=== PATIENT | male | born 1995 | race Caucasian/White ===

== ENCOUNTER 2019-07-18 12:19 | Emergency (ER) | payer SELFPAY ==
[~2019-07-18] VITALS: Ht 182.9 cm; Wt 110.2 kg
[2019-07-18] MEDS ORDERED: ONDANSETRON ODT8 MG PO (15:54)
[2019-07-18] MEDS ORDERED: HYDROXYZINE HCL25 MG PO (15:54)
== END 2019-07-18 16:05 | disposition home or self-care (01) ==
LOC: ED 12:19
DX: B34.9 Viral infection, unspecified (principal); F41.9 Anxiety disorder, unspecified
CPT/HCPCS: 80053; 85025; 96361; 96374; 96375; 99284-25; J1885; J2405; J7030

== ENCOUNTER 2023-01-18 17:54 | Emergency (ER) | payer SELFPAY ==
[~2023-01-18] VITALS: Ht 182.9 cm; Wt 117.8 kg
[~2023-01-18 17:54] MED LIST: CITALOPRAM HBR10 MG PO; HYDROXYZINE HCL25 MG PO; OMEPRAZOLE20 MG PO; ONDANSETRON ODT8 MG PO; ZESTRIL5 MG PO
== END 2023-01-18 19:45 | disposition home or self-care (01) ==
LOC: ED 17:54
DX: F41.9 Anxiety disorder, unspecified (principal); I10 Essential (primary) hypertension; Z79.899 Other long term (current) drug therapy
CPT/HCPCS: 99283

== ENCOUNTER 2024-03-13 22:49 | Observation (INO) | payer OTHER ==
[~2024-03-13] VITALS: Ht 182.9 cm; Wt 127.5 kg
[2024-03-13 23:35] LABS: BILIRUBIN, URINE NEGATIVE (negative); BLOOD/HGB, URINE NEGATIVE (Negative); KETONE, URINE NEGATIVE (Negative); LEUK ESTERASE, URINE NEGATIVE (negative); NITRITE, URINE NEGATIVE (negative); PH, URINE 7.5 (5-7)
[2024-03-13 23:39] LABS: EOSINOPHILS 2.5 % (0-6); HEMATOCRIT 43.8 % (35.0-50.0); LYMPHOCYTES 39.3 % (24-44); MCH 29.6 (27-36); MCHC 34.3 g/dl (30-36); MCV 86.1 fl (81-99); MONOCYTES 7.8 % (0-12); NEUTROPHILS 49.4 % (39-80); PLATELET COUNT 244 K/uL (140-440); RBC 5.08 M/ul (4.3-5.7); RDW 13.4 (10.5-15.0)
[2024-03-13 23:45] LABS: ALBUMIN/GLOBULIN RATIO 0.98 (1.1-2.4); ANION GAP 14.9 (7-21); BILIRUBIN, TOTAL 0.5 ng/dL (0.2-1.0); BUN/CREATININE RATIO 13.33 (6.0-28.6); CALCIUM 8.6 mg/dL (8.5-10.1); CREATININE, SERUM 1.05 mg/dL (0.70-1.30); POTASSIUM 3.9 mmol/L (3.5-5.1); PROTEIN, TOTAL 8.1 g/dL (6.4-8.2)
[2024-03-14] VITALS (8 sets, daily range): BP systolic 135–163; BP diastolic 66–94
[2024-03-14] MEDS ORDERED: CEFAZOLIN SODIUM 2 GM/20 ML SYR IV ONE (01:30)
[2024-03-14] MEDS ORDERED: metroNIDAZOLE/SODIUM CHLORIDE 100 ML IV ONE (01:43)
[2024-03-14] MEDS ORDERED: LACTATED RINGER'S 1,000 ML IV SCH ×2 (01:45→07:30)
[2024-03-14] MEDS ORDERED: KETOROLAC TROMETHAMINE 30 MG/ML VIAL IV PRN ×2 (01:45→07:30)
[2024-03-14] MEDS ORDERED: MORPHINE SULFATE 10 MG/ML VIAL IV PRN ×2 (01:45→07:30)
[2024-03-14] MEDS ORDERED: ondansetron HCL 4 MG/2 ML VIAL IV PRN ×3 (01:45→14:45)
[2024-03-14] MEDS ORDERED: FAMOTIDINE 20 MG/ 2 ML VIAL IV SCH ×3 (01:48→12:00)
[2024-03-14] MEDS ORDERED: HEParin SOD (PORCINE) 5,000 UNIT/0.5 ML SYR SUB-Q SCH (09:00)
[2024-03-14] MEDS ORDERED: fentaNYL citrate 100 MCG/2 ML VIAL ONE (09:22)
[2024-03-14] MEDS ORDERED: DEXAMETHASONE SOD PHOS 4 MG/ML VIAL ONE ×2 (09:22→12:05)
[2024-03-14] MEDS ORDERED: propofoL 200 MG/20 ML VIAL ONE ×2 (09:22→12:05)
[2024-03-14] MEDS ORDERED: ondansetron HCL 4 MG/2 ML VIAL ONE ×2 (09:22→12:05)
[2024-03-14] MEDS ORDERED: LIDOCAINE HCL 2% 5 ML SDV ONE ×2 (09:23→12:05)
[2024-03-14] MEDS ORDERED: ROCURONIUM BROMIDE 50 MG/5 ML SYR ONE ×3 (09:23→14:23)
[2024-03-14] MEDS ORDERED: CITALOPRAM HBR20 MG PO (09:50)
[2024-03-14] MEDS ORDERED: SUGAMMADEX SODIUM 200 MG/2 ML ML ONE (12:05)
[2024-03-14] MEDS ORDERED: SUCCINYLCHOLINE IN 0.9% NACL 200 MG/10 ML SYRINGE ONE (12:05)
[2024-03-14] MEDS ORDERED: ACETAMINOPHEN 1,000 MG/100 ML VIAL ONE (12:05)
[2024-03-14] MEDS ORDERED: MIDAZOLAM HCL 2 MG/2 ML VIAL ONE (12:05)
[2024-03-14] MEDS ORDERED: fentaNYL citrate 250 MCG/5 ML VIAL ONE (12:05)
[2024-03-14] MEDS ORDERED: KETOROLAC TROMETHAMINE 30 MG/ML VIAL ONE (12:05)
[2024-03-14] MEDS ORDERED: FAMOTIDINE 20 MG/ 2 ML VIAL ONE (13:46)
[2024-03-14] MEDS ORDERED: CEFAZOLIN SODIUM 3 GM/30 ML SYR IV SCH (14:00)
[2024-03-14] MEDS ORDERED: LACTATED RINGER'S 1,000 ML IV ONE (14:38)
[2024-03-14] MEDS ORDERED: droPERidol 5 MG/2 ML VIAL IV PRN (14:45)
[2024-03-14] MEDS ORDERED: IBLOOD GLUCOSE TEST STRIP 1 EA TEST VI PRN (14:45)
[2024-03-14] MEDS ORDERED: fentaNYL citrate 50 MCG/ML SDV IV PRN (14:45)
[2024-03-14] MEDS ORDERED: PROCHLORPERAZINE EDISYLATE 10 MG/2 ML VIAL IV PRN (14:45)
[2024-03-14] MEDS ORDERED: HYDROmorphone HCL 1 MG/ML SYR IV PRN (14:45)
[2024-03-14] MEDS ORDERED: NALOXONE HCL 0.4 MG SYR IV PRN (14:45)
[2024-03-14] MEDS ORDERED: ACETAMINOPHEN 500 MG TAB PO PRN (15:45)
[2024-03-14] MEDS ORDERED: OXYCODONE/APAP 7.5/325 TAB PO PRN (15:45)
[2024-03-14] MEDS ORDERED: CITALOPRAM HYDROBROMIDE 20 MG TAB PO SCH (21:00)
[2024-03-14] MEDS ORDERED: lisinopriL 5 MG TAB PO SCH (21:00)
--- NOTE | 2024-03-14 22:29 | HP ---
[facility] [address] [place], [place] [address] Signed ADMISSION DATE: 03/13/2024 REASON FOR ADMISSION: Appendicitis. 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 He is accompanied by his . He presented to the emergency room late last night, was evaluated by Dr. De with complaints of four days of progressively worsening. The umbilical pain now located in the right lower quadrant. He had no associated nausea, vomiting, fever, or chills. Evaluation included a CT scan, which showed findings consistent with acute uncomplicated appendicitis. He is admitted for further evaluation and care. PAST MEDICAL HISTORY: Notable for right rotator cuff surgery in the past. PAST SURGICAL HISTORY: He has never had abdominal surgery. He has had bilateral eye operation as well. MEDICATIONS: He does have hypertension for which he takes lisinopril. ALLERGIES: He has no known drug allergies. SOCIAL HISTORY: He does not smoke or drink alcohol particularly. 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 REVIEW OF SYSTEMS: He denies any shortness of breath or chest pain. He has had no dysphagia, dysuria, hematuria, or hematemesis. He had no nausea or vomiting. No increasing pain in the right lower abdomen. PHYSICAL EXAMINATION: GENERAL: He is a pleasant white man, who does not look systemically toxic at this time. He is accompanied by his . HEENT: Mucous membranes are moist. Trachea is midline. CHEST: Clear. HEART: Regular without murmur. Electronically Signed By: MENDOZA ARTHUR MD 03/14/24 2229 PATIENT NAME: RASHAUN SENA HISTORY AND PHYSICAL DATE OF : [birth year] REPORT #: [id number] PHYSICIAN: MENDOZA ARTHUR MD PCP: FILI HERNANDEZ MD REPORT IS CONFIDENTIAL AND NOT TO BE RELEASED WITHOUT AUTHORIZATION [facility] [address] [place], [place] [address] Signed ABDOMEN: Obese, but soft. He has positive Rovsing sign. There is tenderness in the right lower quadrant as well. EXTREMITIES: Show no clubbing, cyanosis, or edema. LABORATORY STUDIES: Show a white count of 7.7, hematocrit 43.8, platelets 244,000. Electrolytes are normal. Creatinine 1.05. Urinalysis is negative. IMAGING DATA: CT scan was reviewed. The images do show a fair amount of intraabdominal fat and well preserved fat planes. The liver and spleen appear normal as does the stomach. The aorta and the vena cava and both kidneys also normal as well. There appeared to be fecaliths within the appendix contiguous in their appearance. I did not see excessive fat stranding in the area, however. Interpretation by the radiologist was that of appendicolith with uncomplicated appendicitis. ASSESSMENT AND PLAN: The patient has acute appendicitis. His clinical history is rather typical for it with the initiation of periumbilical pain now located in the right lower quadrant. Clinical examination is consistent with this. His lab studies are relatively unremarkable with a white count that is normal at 7.7. I have recommended laparoscopic appendectomy, possible open procedure or other indicated procedures as necessary. The risk of bleeding, infection, failure of diagnosis, misdiagnosis, need for other indicated procedures including open procedure was all reviewed with him. He and his understand and wished to proceed. MD ELICIA Landers/ETIENNE /[id number] cc: Dr. Santino Hernandez MD Electronically Signed By: MENDOZA ARTHUR MD 03/14/24 2229 PATIENT NAME: RASAHUN SENA HISTORY AND PHYSICAL DATE OF : [birth year] REPORT #: [id number] PHYSICIAN: MENDOZA ARTHUR MD PCP: FILI HERNANDEZ MD REPORT IS CONFIDENTIAL AND NOT TO BE RELEASED WITHOUT AUTHORIZATION [facility] [address] [place], [place] [address] Signed Copies: FILI HERNANDEZ MD ~ Electronically Signed By: MENDOZA ARTHUR MD 03/14/24 2229 PATIENT NAME: RASHAUN SENA FRANCISCO HISTORY AND PHYSICAL DATE OF : [birth year] REPORT #: [id number] PHYSICIAN: MENDOZA ARTHUR MD PCP: FILI HERNANDEZ MD REPORT IS CONFIDENTIAL AND NOT TO BE RELEASED WITHOUT AUTHORIZATION
[2024-03-15 01:08] VITALS: BP 147/78
[2024-03-15 05:27] VITALS: BP 154/92
[2024-03-15 05:35] LABS: BASOPHILS 0.4 % (0-2); EOSINOPHILS 0.1 % (0-6); HEMATOCRIT 40.5 % (35.0-50.0); HEMOGLOBIN 13.7 g/dL (12.0-18.0); MCH 29.3 (27-36); MCHC 33.8 g/dl (30-36); MCV 86.5 fl (81-99); NEUTROPHILS 84.5 % (39-80); PLATELET COUNT 249 K/uL (140-440); RBC 4.68 M/ul (4.3-5.7); RDW 13.5 (10.5-15.0)
[2024-03-15 05:53] LABS: ALBUMIN 3.5 g/dL (3.4-5.0); ALBUMIN/GLOBULIN RATIO 0.92 (1.1-2.4); ANION GAP 13.5 (7-21); BILIRUBIN, TOTAL 0.6 ng/dL (0.2-1.0); BUN/CREATININE RATIO 13.13 (6.0-28.6); CALCIUM 8.8 mg/dL (8.5-10.1); CREATININE, SERUM 0.99 mg/dL (0.70-1.30); POTASSIUM 4.5 mmol/L (3.5-5.1); PROTEIN, TOTAL 7.3 g/dL (6.4-8.2)
[2024-03-15] MEDS ORDERED: IBUPROFEN 600 MG TAB PO PRN (07:45)
[2024-03-15 09:01] VITALS: BP 142/87
[2024-03-15] MEDS ORDERED: ACETAMINOPHEN500 MG PO (09:23)
[2024-03-15] MEDS ORDERED: IBUPROFEN600 MG PO (09:23)
[2024-03-15] MEDS ORDERED: OXYCODON-ACETA1 EAC2 PO (09:24)
[2024-03-15 10:01] VITALS: BP 142/87
--- NOTE | 2024-03-16 20:11 | OR ---
[facility] [address] [place], [place] [address] Signed DATE OF OPERATION: 03/14/2024 SURGEON: Mendoza Arthur MD PREOPERATIVE DIAGNOSES: 1. Acute appendicitis with multiple fecalith. 2. Morbid obesity. POSTOPERATIVE DIAGNOSES: 1. Acute appendicitis with multiple fecalith. 2. Morbid obesity. PROCEDURE: Laparoscopic appendectomy, prolonged complicated difficult. ANESTHESIA: General endotracheal. Isidro Pinto CRNA and local 10 mL of 0.25% Marcaine with epinephrine. INDICATION: This 29-year-old morbidly obese white man is a patient of Dr. Dilan Hernandez. He presented to the Emergency Room and evaluated thoroughly by Dr. Ez De with clinical findings of abdominal pain and ultimately diagnosed with acute appendicitis. A CT scan was performed as part of his evaluation, which showed multiple fecaliths in the appendix and periappendiceal inflammation. His white count was normal at 7.7. Urinalysis is normal. He has been fluid resuscitated given intravenous antibiotics and now to undergo appendectomy preferred by laparoscopic approach. The risk of bleeding, infection, need for open procedure, incisional problems, and other unforeseen complications, which may be related to his obesity were all reviewed in detail. He understands as does his and they wish to proceed. FINDINGS: He had a copious amount of intraabdominal fat and a very fatty omentum. Initially, it was challenging to even identify the appendix, but ultimately it was. Complete appendectomy was performed with a small portion of cecum excised in continuity. Good hemostasis was noted. There were no other findings of note. DESCRIPTION OF PROCEDURE: The patient was brought to the operating room, given a general endotracheal anesthesia. The abdomen was clipped and prepared with a chlorhexidine solution and draped sterilely. Electronically Signed By: MENDOZA ARTHUR MD 03/16/242010 PATIENT NAME: RASHAUN SENA OPERATIVE REPORT DATE OF : [birth year] REPORT #: [id number] PHYSICIAN: MENDOZA ARTHUR MD PCP: DILAN HERNANDEZ MD REPORT IS CONFIDENTIAL AND NOT TO BE RELEASED WITHOUT AUTHORIZATION [facility] [address] [place], [place] [address] Signed Preoperative antibiotic Ancef and Flagyl had been given and sequential compression device stockings used. After sterile draping, an infraumbilical incision was made and using an open Litzy cannula technique pneumoperitoneum which was achieved to a level of 14 mmHg of carbon dioxide gas. There was no sign of generalized peritonitis or carcinomatosis. The liver had mild fatty infiltration. The appendix, and certainly not even the colon, was visible initially as very large in fat and extensive omentum was covering the lower abdomen. A 12 mm epigastric port was placed the camera replaced to that site. He is in single hand manipulation. Attempts were made to expose the cecum and the small bowel, but this was not forthcoming due to copious small bowel loops in the region of the right lower abdomen as well as a very heavy omentum. The patient was placed in the left side down position after ascertaining good position of his arm, which was at the side and so as to avoid any arm injury in any way. Still, the appendix was non visible. Through a right lower quadrant 5 mm port, two hand manipulation was undertaken ultimately identifying the tip of the appendix which was quite markedly inflamed. This was grasped and elevated cephalad allowing one and two separate small bowel loops and other surrounding have the soft tissue out of the way and ultimately elevating the appendix more fully, which was quite markedly inflamed. With sequential grasping and freeing of surrounding adhesions with blunt electrocautery dissection, the appendix was more fully elevated. It was ultimately dissected to the base of the cecum itself. The mesentery to the appendix was quite fatty. On this occasion, the transection of the base of the appendix as the initial portion was most advisable. A window was created between the appendix and the cecum and using the Endo-SHAY stapling device the appendix was transected flush with the cecum excising the small portion of cecum with it. This freed the mesoappendix for additional vascular control. A stapling device with a vascular load was similarly used to transect the mesoappendix. The appendix was placed in the endobag and extracted through the infraumbilical port and separately photographed. It is relatively lengthy in relation to his overall body habitus. Reinspection of the staple line showed good hemostasis. Irrigation was undertaken with excess irrigation fluid was suctioned free. Some Florecita hemostatic agent was applied to the staple line on the mesoappendix to be doubly certain of good hemostasis. The trocar in the right lower quadrant was removed. The camera was replaced with the epigastric port and suction was undertaken over the liver removing any excess irrigation fluid. The epigastric port was removed under direct visualization showing no sign of bleeding. The Litzy camera was removed and the infraumbilical fascial incision reapproximated with interrupted 0 Vicryl suture. Irrigation was undertaken. Hemostasis was assured in the subcutaneous space and 10 mL of 0.25% Marcaine with epinephrine was injected locally. The skin was then closed with interrupted 3-0 Vicryl. Steri-Strips were applied. He was ultimately extubated and transferred to recovery in good condition having suffered no complication. Sponge, needle, and instrument counts reported as Electronically Signed By: MENDOZA ARTHUR MD 03/16/242010 PATIENT NAME: RASHAUN SENA OPERATIVE REPORT DATE OF : [birth year] REPORT #: [id number] PHYSICIAN: MENDOZA ARTHUR MD PCP: DILAN HERNANDEZ MD REPORT IS CONFIDENTIAL AND NOT TO BE RELEASED WITHOUT AUTHORIZATION [address] [place], [place] [address] Signed correct x3. MD ELICIA Landers/ISABELLAL /[id number] cc: MD Dilan Fagan MD Copies: DILAN HERNANDEZ MD ~ Electronically Signed By: MENDOZA ARTHUR MD 03/16/242010 PATIENT NAME: RASHAUN SENA OPERATIVE REPORT DATE OF : [birth year] REPORT #: [id number] PHYSICIAN: MENDOZA ARTHUR MD PCP: DILAN HERNANDEZ MD REPORT IS CONFIDENTIAL AND NOT TO BE RELEASED WITHOUT AUTHORIZATION
--- NOTE | 2024-03-19 14:55 | PATH ---
[facility] [address] [place] [place] [address] Signed SPECIMEN(S): A APPENDIX SPECIMEN SOURCE: A. APPENDIX CLINICAL HISTORY: Acute appendicitis FINAL PATHOLOGIC DIAGNOSIS: Appendix, appendectomy: - Acute appendicitis, periappendicitis, and serositis. JVR:[facility] MICROSCOPIC EXAMINATION: Histologic sections of all submitted blocks are examined by light microscopy. These findings, together with the gross examination, support the pathologic diagnosis. GROSS DESCRIPTION: The specimen, labeled and designated "Futter, appendix," is received in formalin and consists of Specimen: Appendix with mesoappendix. Dimensions: 13.0 x 3.3 x 1.9 cm. Serosa: Red-brown to pink-naqvi. Defect: Not grossly identified. Inking: Staple line and mesoappendix margin inked Blue. Mucosa: Yellow-naqvi to red-brown. Fecalith: Not grossly identified. Additional: None. Retinal Surgeon sections are submitted in (A1). VB (under the direct supervision of a pathologist) The Gross Description was prepared using a voice recognition system. The report was reviewed for accuracy; however, sound-alike word errors, addition and/or deletions may occur. If there is any question about this report, please contact Client Services. PERFORMING LABORATORY: Technical component was performed by [facility], [address] [place] [id number] (CLIA# [id number]). Professional interpretation was performed by [facility], [address] [place] [address], [place] [address] (CLIA#: [id number]). PATIENT NAME: RASHAUN SENA PATHOLOGY DATE OF : [birth year] REPORT #: [id number] PHYSICIAN: [facility] PCP: FILI CANALES MD REPORT IS CONFIDENTIAL AND NOT TO BE RELEASED WITHOUT AUTHORIZATION [address] [address] Signed Diagnostician: Ricardo Ladd MD Pathologist Electronically Signed 03/19/2024 Copies: ~ PATIENT NAME: RASHAUN SENA PATHOLOGY DATE OF : [birth year] REPORT #: [id number] PHYSICIAN: [facility] PCP: FILI CANALES MD REPORT IS CONFIDENTIAL AND NOT TO BE RELEASED WITHOUT AUTHORIZATION
== END 2024-03-15 10:25 | disposition home or self-care (01) ==
LOC: ED 22:49 → MS 22:51
PROVIDERS: Internal Medicine; ADMIT Surgery; ATTEND Surgery
PROC: 0DTJ4ZZ Resection of Appendix, Percutaneous Endoscopic Approach (ICD-10-PCS; principal; 2024-03-14 09:45)
DX: K35.30 Acute appendicitis with localized peritonitis, without perforation or gangrene (principal); K38.1 Appendicular concretions; I10 Essential (primary) hypertension; E66.01 Morbid (severe) obesity due to excess calories; Z68.38 Body mass index [BMI] 38.0-38.9, adult; Z79.899 Other long term (current) drug therapy
CPT/HCPCS: 00840; 36415; 74177; 80053; 81003; 85025; 94762; 96372; A9270; G0378; J0131; J0330; J0690; J1100; J1644; J1885; J2001; J2250; J2405; J2704; J3010; J3490; J7121; Q9967

== ENCOUNTER 2024-04-06 19:37 | Emergency (ER) | payer OTHER ==
[~2024-04-06] VITALS: Ht 182.9 cm; Wt 110.0 kg
[~2024-04-06 19:37] MED LIST changes: +ACETAMINOPHEN500 MG PO; +CITALOPRAM HBR20 MG PO; +IBUPROFEN600 MG PO; +OXYCODON-ACETA1 EAC2 PO
--- OUTSIDE RECORDS SUMMARY | 2024-04-06 19:40 | XMS ---
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 Rosi has no Care Guidelines for this patient. [facility]12 MO.) [facility] NOTE: Visits indicate total known visits. ED/C VISIT TRACKING (12 MO.) 04/06/2024 19:[address] [facility] [address] [place] TYPE: Emergency COMPLAINT: - WOUND CHECK 03/13/2024 22:50 [facility] [place] TYPE: Emergency COMPLAINT: - ABDOMINAL PAIN INPATIENT VISIT TRACKING (12 MO.) 03/13/2024 22:51 [facility] [place] TYPE: Observation COMPLAINT: - ACUTE APPENDICITIS DIAGNOSES: - Acute appendicitis with localized peritonitis, without perforation or gangrene - Appendicular concretions - Body mass index [BMI] 38.0-38.9, adult - Essential (primary) hypertension - Morbid (severe) obesity due to excess calories - Other senior care (current) drug therapy - Unspecified acute appendicitis [email or web address]
[2024-04-06 21:47] VITALS: BP 141/96
== END 2024-04-06 21:47 | disposition home or self-care (01) ==
LOC: ED 19:37
DX: Z48.01 Encounter for change or removal of surgical wound dressing (principal); I10 Essential (primary) hypertension; Z79.899 Other long term (current) drug therapy
CPT/HCPCS: 99283

== ENCOUNTER 2025-01-05 02:56 | Emergency (ER) | payer OTHER ==
[~2025-01-05] VITALS: Ht 182.9 cm; Wt 129.7 kg
[2025-01-05 03:15] VITALS: BP 157/96
== END 2025-01-05 03:36 | disposition home or self-care (01) ==
LOC: ED 02:56
DX: S61.215A Laceration without foreign body of left ring finger without damage to nail, initial encounter (principal); I10 Essential (primary) hypertension; Z79.899 Other long term (current) drug therapy; W25.XXXA Contact with sharp glass, initial encounter
CPT/HCPCS: 99283

== ENCOUNTER 2025-08-25 19:35 | Emergency (ER) | payer OTHER ==
[~2025-08-25] VITALS: Ht 182.9 cm; Wt 118.0 kg
[2025-08-25] MEDS ORDERED: LACTULOSE10 GM/15 M PO (20:49)
[2025-08-25] MEDS ORDERED: MAGNESIUM CITRATE 300 ML BTL PO ONE (21:00)
[2025-08-25 21:05] VITALS: BP 131/87
== END 2025-08-25 21:06 | disposition home or self-care (01) ==
LOC: ED 19:35
DX: K59.03 Drug induced constipation (principal); T50.995A Adverse effect of other drugs, medicaments and biological substances, initial encounter; I10 Essential (primary) hypertension; Z79.899 Other long term (current) drug therapy
CPT/HCPCS: 74018; 99283